=== PATIENT | male | born 1960 | race Hispanic/Latino ===

== ENCOUNTER 2016-09-18 06:15 | Day surgery (SDC) | payer OTHER ==
[~2016-09-18] VITALS: Ht 167.6 cm; Wt 104.2 kg
[~2016-09-18 06:15] MED LIST: AZU500 PO; CeFAZolin Inj 2 GM in IV Premix 1 EACH IV ONE; Lactated Ringer's 1,000 ML IV SCH; METH2.5T PO; OMEP20CA11 PO
[2016-09-18] MEDS ORDERED: Propofol 10,000 mCg/mL 20 mL Inj ONE (06:16)
[2016-09-18] MEDS ORDERED: Ketamine 10 mg/mL 20 mL Inj ONE (06:16)
[2016-09-18] MEDS ORDERED: Lactated Ringer's 1,000 ML IV ONE (06:52)
[2016-09-18 06:53] VITALS: BP 136/78; PULSE 81; RESP 17; O2SAT 95
[2016-09-18] MEDS ORDERED: HYDROcodone-APAP 5-325 mg Tablet PO PRN (07:25)
[2016-09-18] MEDS ORDERED: Lactated Ringer's 500 ML IV PRN (07:57)
[2016-09-18] MEDS ORDERED: Lactated Ringer's 1,000 ML IV SCH (07:57)
--- NOTE | 2016-09-18 07:57 | PCM.HPANE ---
Patient Data Date of Service: Sep 18, 2016 Surgeon Admitting Provider: Attending Provider:Juwan Self DO Primary Care Physician:Yanet Rhodes MD Other Provider:Radhika Nicole Anesthesia Reason for Visit Right Carpal Tunnel Syndrome Ht/WT & BMI Height (Feet): 5 Height (Inches): 6 Weight (Kilograms): 104.24 Body Mass Index 36.00 Allergies Coded Allergies: prednisone (Verified Allergy, Severe, Sweats, 09/12/16) Past Anesthesia History Anesthesia History: Denies:: Anesthesia Reactions, Malignant Hyperthermia Diabetes History Hx Diabetes?: No MRSA MRSA: No Medications Home Meds Incl Beta Wilman: No Reported Medications Sulfasalazine 500 Mg Tablet1,500 Mg PO DAILY PRN RHEUMATOID ARTHRITIS 30 Days Ref 0 09/12/16 Omeprazole 20 Mg Capsule.dr20 Mg PO DAILY Ref 0 09/12/16 Methotrexate Sodium (Methotrexate)2.5 Mg Zyaixp08 Mg PO WEEKLY 09/12/16 Discontinued Reported Medications Gabapentin 100 Mg CapsuleUnknown Dose PO BID 30 Days Ref 0 06/05/14 Omeprazole Magnesium (Omeprazole)20 Mg Capsule.dr20 Mg PO DAILY 30 Days Ref 0 06/05/14 Albuterol HFA 8.5 Gm Hfa.aer.ad1 Puff IH Q4 PRN For Cough #1 INHALER Ref 0 06/05/14 Discontinued Scripts Oxycodone (Roxicodone)5 Mg Tablet5 Mg PO Q4H PRN For Pain #10 TABLET Ref 0 Prov:Harris De Jesus PA-C 07/21/16 History History of ENT Problems?: Yes HEENT History: Positive for:: Sinus Problem (ALLERGIC RHINITIS) Hx of Heart Problems?: Yes Cardiovascular History: Positive for:: Chest Pain (05/2007 PROBABLY R/T GERD) Denies:: Cardiac Surgery Congestive Heart Failure Edema Heart Murmur (MPS 05/2007 EF 73%) Hypertension Irregular Heartbeat (04/2006 C/OF PALPITATIONS FOLLOWING DENTAL BLOCK ( TESTING WNL)) Pacemaker Thrombophlebitis Valvular Heart Disease Other History/Comments Pt has been evaluated by cards and determined to have chronic Musculoskeletal pain at L pectoral girdle. Pt describes similar pain today but confirms it to be consistent with prior sensation Hx of Respiratory Problem?: Yes Respiratory History: Positive for:: Use of C-PAP Machine (MONY+ NO LONGER USUES CPAP & DENIES CURRENT PROBLEMS SLEEP STUDY 08/2009) Hx Neurologic Problems?: Yes Other Neurological Pertinent: HX CHRONIC PAIN DISORDER Hx of GI Problems?: Yes Gastrointestinal History: Positive for:: Gall Bladder Disease (S/P GUY) Gastroesphageal Reflux (HX MCMAHON'S ESOPHAGUS) Heartburn Hiatal Hernia Rectal Bleeding (HX HEMORRHOIDS) Denies:: Diverticulitis Gastrointestinal Bleeding Hepatitis Other GI Pertinent History: S/P LT HERNIA RPR Other History/Comment Probable GERD Hx of Problems?: No Genitourinary History: Denies:: Kidney Stones Urinary Tract Infection Male Hx: Denies:: Prostate Problems Scrotal Mass Testicular Surgery Skin History: Denies:: History Skin Disorders? Pressure Ulcers Hx Musculoskeletal Problems?: Yes Musculoskeletal History: Positive for:: Musculoskeletal Trauma (HX ROTATOR CUFF TENDONITIS) Osteoarthritis Rheumatoid Arthritis Denies:: Back Injury (C/OF NECK PAIN) Joint Replacement Hx of Psycho/Social Problems?: No Hx Surgeries?: Yes (CERVICAL CHON,EXC GANGLION RT WRIST,LT HERNIA RPR,GUY) Hx Any Other Health Problems?: Yes Other History: Positive for:: Hospitalization (CHEST PAIN) Denies:: Cancer Endocrine Disease Thyroid Disease History Blood Transfusions: Denies:: Blood Transfusions Hx Diabetes: No Hx Alcohol Use: NoHx Substance Use: NoHave You Smoked inLast 12 mo: No Stop/Bang Treated for Sleep Apnea?: No Do You Have a CPAP Machine?: No S-Snoring: Do You Snore Loudly: Yes T-Tired: feel tired, fatigued: Yes O-Obsered: Observed not breath: No P-Blood Pressure: treated: No B- Body Mass Index > 35 kg/m2: Yes A- Age over 50: Yes N- Neck Large Circumference: Yes G- Gender Male: Yes MONY Total Score: 6 MONY Risk Assessment: Low Risk, <3 Yes (thick neck, Mal III airway) MONY Category 2: Yes Risk Assessment Category Category 1A: Patient has history of documented sleep apnea, and HAS NOT received any narcotic, sedative or anesthesia administration during this stay. Category 1B: Patient has history of documented sleep apnea, and HAS received any narcotic , sedative or anesthesia administration during this stay Category 2: Patient has SUSPECTED Obstructive Sleep Apnea, and HAS received any narcotic , sedative or anesthesia administration during this stay. Category 3: Patient has SUSPECTED Obstructive Sleep Apnea and HAS NOT received narcotic, sedative or anesthesia administration during this stay. Category 4: Outpatient in Procedural Areas with known sleep apnea or who screen positive for High Risk via the STOP/BANG questionnaire. Exam Exam Vital Signs Vital Signs Date Time Temp Pulse Resp B/P Pulse Ox O2 Delivery O2 Flow Rate FiO2 09/18/16 06:53 35.9 81 17 136/78 95 Room Air General Appearance: Alert HEENT/AIRWAY: MP 3 Lungs: Clear to Auscultation, Normal Air Movement Heart: Exam Unremarkable, Normal S1, Normal S2 Additional Information thick neck, large tongue with intact dentition Meds/Labs/Diagnostics Admission Meds Current Medications Lactated Ringer's (Lr) 1,000 ml @ ud STK-MED ONCE IV Last administered on 06:52; Start 09/18/16 at 06:52; Stop 09/18/16 at 06:53; Status DC Midazolam HCl (Versed Inj) 2 mg STK-MED ONCE .ROUTE Last administered on 07:29; Start 09/18/16 at 07:21; Stop 09/18/16 at 07:23; Status DC Plan Impression Patient chart reviewed, patient interviewed and anesthestic plan with risks, benefits, and alternatives discussed, and informed consent obtained. NPO Status: 09/17@2100 ASA Physical Status: ASA2 Mod Systemic Disease Anesthetic Plan: Regional Block Bene/Risks/Altern/Consents: Yes HP Complete Prior to Induction: Yes (discussed through crop research scientist, Pt has opportunity to ask questions. Will plan Liliana block / Surgeon request.) Estevan Retana DO Sep 18, 2016 07:57
[2016-09-18] MEDS ORDERED: Labetalol 5 mg/mL 4 mL Inj IV PRN (08:00)
[2016-09-18] MEDS ORDERED: MetoCLOpramide 5 mg/mL 2 mL Inj IVPUSH PRN (08:00)
[2016-09-18] MEDS ORDERED: EPHEDrine Sulfate 50 mg/mL Inj IVPUSH PRN (08:00)
[2016-09-18] MEDS ORDERED: Dexamethasone 4 mg/mL Inj IVPUSH PRN (08:00)
[2016-09-18] MEDS ORDERED: Ondansetron 2 mg/mL 2 mL Inj IVPUSH PRN (08:00)
[2016-09-18] MEDS ORDERED: Phenylephrine 10,000 mCg/mL Inj IVPUSH PRN (08:00)
[2016-09-18] MEDS ORDERED: HYDROmorphone 1 mg/mL Inj IVPUSH PRN (08:00)
[2016-09-18] MEDS ORDERED: Atropine 0.4 mg/mL Inj IVPUSH PRN (08:00)
[2016-09-18] MEDS ORDERED: fentaNYL-PF 50 mCg/mL 2 mL Inj IVPUSH PRN (08:00)
[2016-09-18] MEDS ORDERED: Lidocaine 2%-Epi 1:100,000 20 mL Inj NERVEBLOCK ONE (08:29)
[2016-09-18 08:41] VITALS: BP 130/83; PULSE 87; RESP 17; O2SAT 96
--- NOTE | 2016-09-18 09:12 | PCM.ANEP1 ---
Post Anesthesia Phase 1 PACU Phase 1 Assessment Date of Service: Sep 18, 2016 Vital Signs Vital Signs Date Time Temp Pulse Resp B/P Pulse Ox O2 Delivery O2 Flow Rate FiO2 09/18/16 08:41 36.5 87 17 130/83 96 Room Air 09/18/16 06:53 35.9 81 17 136/78 95 Room Air Anesthetic Administered: Regional Block (Liliana SZYMANSKI) HERNANDEZ's with Equal Strength: Yes Pain: No Nausea or Vomiting: No Oxygen Delivery: Room Air Lungs: Clear to Auscultation, Normal Air Movement Summary Residrual sensory block c/w Estevan Baker DO Sep 18, 2016 09:12
[2016-09-18 09:30] VITALS: BP 135/75; PULSE 80; RESP 17; O2SAT 96
--- NOTE | 2016-09-18 09:44 | PCM.ANEP2 ---
Post Anesthesia Evaluation ASA/CMS Post Anesthesia Date of Service: Sep 18, 2016 VS in Patient's Normal Range?: Yes Resp Stable; Airway Patent?: Yes CV Function & Hydration Stable: Yes Mental Status Recovered?: Yes Pain control Satisfactory?: Yes N/V Control Satisfactory?: Yes Estevan Retana DO Sep 18, 2016 09:44
--- NOTE | 2016-09-18 23:16 | OP ---
[address] [address] OPERATIVE REPORT PATIENT: SAVANAH FONTAINE : 1960 MR#: [id number] ADMIT: 09/18/2016 JOB ID: [id number] DATE OF SURGERY: 09/18/2016 PREOPERATIVE DIAGNOSIS(ES): Right carpal tunnel syndrome. POSTOPERATIVE DIAGNOSIS(ES): Right carpal tunnel syndrome. PROCEDURE: Right open carpal tunnel release. SURGEON: Juwan Self D.O. ANESTHESIA: [place] block. BRIEF HISTORY: The patient is a pleasant 56-year-old male with a longstanding history of right hand pain and paresthesias. He presented with electrodiagnostic findings demonstrating moderate carpal tunnel syndrome. He failed conservative treatment and opted to proceed with a right open carpal tunnel release. He understood the risks included, but not limited to, neurovascular injury, tendon injury, infection, failure to resolve the patient's preoperative symptoms, stiffness, persistent pain; all of which may require further intervention. The patient had all questions answered. Consent was signed and placed in chart. PROCEDURE IN DETAIL: The patient was brought to the operative suite and placed supine on the operating room table. Surgical time-out performed. Everyone In the room was in agreement. After appropriate anesthesia was obtained, the right arm was then prepped and draped in sterile fashion. A standard 2 cm longitudinal incision was made inline with the radial aspect of the ring finger, the ulnar aspect, palmaris longus. The incision was kept distal to the wrist crease and proximal to Liang's cardinal line. Subcutaneous tissues were dissected. Bipolar electrocautery utilized to maintain hemostasis throughout the procedure. The palmar fascia was first identified and incised longitudinally inline with the skin incision, followed by exposure of the transverse carpal ligament. Transcarpal ligament was then released in its entirety to include the distal extent of the antebrachial fascia. Copious irrigation was performed followed by closure of skin with 5-0 nylon in simple interrupted fashion. The patient was then placed in a bulky soft dressing. ESTIMATED BLOOD LOSS: Less than 1 cc. COMPLICATIONS: None. DISPOSITION: The patient tolerated the procedure well. Anesthesia was reversed. The patient was transferred back to recovery. POSTOPERATIVE PLAN: The patient will follow up in the office in two weeks and will remove the patient's sutures at that time and have him start working on range of motion and scar mobilization. EARL
== END 2016-09-18 23:59 | disposition home or self-care (01) ==
LOC: SAS 06:15
PROVIDERS: ATTEND Orthopaedic Surgery
DX: G56.01 Carpal tunnel syndrome, right upper limb (principal); M06.9 Rheumatoid arthritis, unspecified; J30.9 Allergic rhinitis, unspecified; K22.70 Barrett's esophagus without dysplasia; K21.9 Gastro-esophageal reflux disease without esophagitis
CPT/HCPCS: 64721; J0690; J2250; J7120